=== PATIENT | female | born 1990 | race Caucasian/White ===

== ENCOUNTER 2018-07-22 10:04 | Observation (INO) | payer MEDICARE, OTHER ==
[2018-07-22 10:09] VITALS: BMI 23.6
[2018-07-22] MEDS ORDERED: Sodium Chloride 0.9% 1,000 ML IV STA (10:39)
[2018-07-22] MEDS ORDERED: Insulin Regular 100 units/ml IVP ONE ×2 (10:39→13:01)
--- NOTE | 2018-07-22 10:54 | ED PDOC ---
Hyperglycemia/Hypoglycemia Time Seen by Provider: 07/22/18 10:24 Chief Complaint (Nursing): High Blood Sugar : The patient does not have any of the infectious symptoms listed except for those marked. Additional Complaint(s): 28 y/o F with a PMHx of fibrous dysplasia, hypothyroidism and IDDM presented to ED due to elevated glucose serum level. Pt reports changing infusion set and tubing last night. Pt woke up early today with nausea, ~3 episodes of vomiting and palpitations. Pt reports measurements of 500s blood sugar since last night. Pt denies nasal congestion, cough, chest pain, SOB, abdominal pain, diarrhea or rash. PMD: in [place] [employer] Tax Manager: Dr Llamas Allergies: TMP/SMZ Meds: Insulin pump, Levothyroxine. PMHx: Fibrous dysplasi, hypothyroidism and IDDM PSHx: Various due to Hx of fibrous dyspla FHx: NC SHx: Ocasional alcohol, last alcohol intake 2 weeks ago. No tobacco. No recreational drugs. Past Medical History Vital Signs: Last Vital Signs Temp 98.7 F 07/22/18 10:09 Pulse 128 H 07/22/18 10:09 Resp 20 07/22/18 10:09 BP 145/91 H 07/22/18 10:09 Pulse Ox 100 07/22/18 10:09 Primary Care Provider: Non [facility] Provider, - Medical History PMH: Diabetes, Hypothyroidism - Family History Family History: States: Unknown Family Hx - Immunization History Hx Influenza Vaccination: No Hx Pneumococcal Vaccination: No - Home Medications Home Medications: Ambulatory Orders Medication Instructions Recorded Ferrous Sulfate [Feosol] 325 mg PO DAILY 04/18/17 Insulin Pump Controller [Snap 1 each MC Q1 04/18/17 Insulin Pump Controller] Levothyroxine [Synthroid] 150 mcg PO DAILY 04/18/17 Benzonatate [Tessalon Perles] 200 mg PO TID #14 sgl 05/31/18 Cetirizine HCl [Zyrtec] 10 mg PO DAILY #14 capsule 05/31/18 Ibuprofen [Motrin] 600 mg PO Q6H #20 tab 05/31/18 Tobramycin 0.3% [Tobrex 0.3% Ophth 1 drop OS BID #1 bottle 05/31/18 Soln] predniSONE [Prednisone] 40 mg PO DAILY #8 tab 05/31/18 - Allergies Allergies/Adverse Reactions: Allergies Allergy/AdvReac Type Severity Reaction Status Date / Time sulfamethoxazole Allergy hives Verified 07/22/18 10:23 [From Bactrim] trimethoprim [From Bactrim] Allergy hives Verified 07/22/18 10:23 Review of Systems Constitutional: Negative for: Fever, Chills ENT: Negative for: Ear Pain, Ear Discharge Cardiovascular: Positive for: Palpitations. Negative for: Chest Pain Respiratory: Negative for: Cough, Shortness of Breath Gastrointestinal: Positive for: Nausea, Vomiting. Negative for: Abdominal Pain, Diarrhea, Hematochezia, Hematemesis Genitourinary Female: Negative for: Dysuria Musculoskeletal: Negative for: Neck Pain Skin: Negative for: Rash Physical Exam - Physical Exam Appears: Positive for: No Acute Distress Head Exam: Positive for: ATRAUMATIC Skin: Positive for: Normal Color, Warm Eye Exam: Positive for: EOMI, PERRL ENT: Negative for: Nasal Congestion, Pharyngeal Erythema, Tonsillar Exudate Neck: Positive for: Normal, Painless ROM, Supple Cardiovascular/Chest: Positive for: Regular Rate, Rhythm Respiratory: Positive for: Normal Breath Sounds Gastrointestinal/Abdominal: Positive for: Soft, Tenderness (mild, epigastric). Negative for: Organomegaly, Mass, Rebound Extremity: Negative for: Tenderness Neurological/Psych: Positive for: Awake, Alert - Laboratory Results Result Diagrams: 07/22/18 11:10 07/22/18 11:10 - ECG O2 Sat by Pulse Oximetry: 100 Medical Decision Making Medical Decision Makin:55 --POC Gluose: 460 --Needs to rule out DKA. --IV NSS bolus and IV Regular insulin 6 units ordered. --CBC, CMP, Mg, PO4, vBG were ordered --EKG ordered 12:55 --POC Glucose 316 --pH 7.3, HCO3 17, anion gap 17-high. --Sodium WNL, U/A unreamrkable with neg nitrites and neg Leuko est. --CXR ordered. --Endocrinology consult ordered. Dr Llamas made aware. Will send insulin pump educator later today. --IV NS-with [id number] ordered --IV Regular Insulin 4 units. --Pt stable, will admitted under Dr Wallis's service. Resident Dr Inge Choe made aware. Disposition - Clinical Impression Clinical Impression: Hyperglycemia, DKA (diabetic ketoacidoses) - Patient ED Disposition Is Patient to be Admitted: Yes - Disposition Disposition Time: 13:17 Condition: FAIR Forms: [employer] ([employer]) - Pt Status Changed To: Hospital Disposition Of: Inpatient - Admit Certification Admit to Inpatient:: After my assessment, the patient will require hospitalization for at least two midnights. This is because of the severity of symptoms shown, intensity of services needed, and/or the medical risk in this patient being treated as an outpatient. - POA Present On Arrival: None
[2018-07-22 11:18] LABS: BASO # 0.1 K/uL (0.0-0.2); BASO % 0.4 % (0.0-2.0); EOS % 0.2 % (0.0-4.0); HEMOGLOBIN 11.9 g/dL (12.0-16.0); LYMPH # 1.8 K/uL (1.0-4.3); LYMPH % 12.6 % (20.0-40.0); MEAN CORPUSCULAR HEMOGLOBIN 28.6 pg (27.0-31.0); MEAN CORPUSCULAR HGB CONC 32.5 g/dL (33.0-37.0); MEAN PLATELET VOLUME 8.3 fl (7.2-11.7); MONO # 0.7 K/uL (0.0-0.8); MONO % 5.1 % (0.0-10.0); NEUT # 11.9 K/uL (1.8-7.0); NEUT % 81.7 % (50.0-75.0); RBC 4.17 Mil/uL (3.80-5.20); RED CELL DISTRIBUTION WIDTH 14.4 % (11.5-14.5); WHITE BLOOD COUNT 14.6 K/uL (4.8-10.8)
[2018-07-22] MEDS ORDERED: Insulin Regular 100 units/ml ONE ×2 (11:18→13:14)
[2018-07-22 11:23] LABS: VENOUS BLOOD GAS BASE EXCESS -8.4 mmol/L (0.0-2.0); VENOUS BLOOD GAS PCO2 35 mmHg (40-60); VENOUS BLOOD GAS PO2 40 mm/Hg (30-55)
[2018-07-22 12:12] LABS: ALB/GLOB RATIO 1.3 (1.0-2.1); ALBUMIN 4.2 g/dL (3.5-5.0); ALT/SGPT 20 U/L (9-52); AST/SGOT 26 U/L (14-36); BLOOD UREA NITROGEN 15 mg/dl (7-17); CALCIUM 9.4 mg/dL (8.4-10.2); GFR NON-AFRICAN AMERICAN > 60
[2018-07-22 12:52] LABS: SQUAMOUS EPITHIAL 14 /hpf (0-5); URINE AMORPHOUS SEDIMENT RARE /ul (<OCC); URINE BACTERIA FEW (<OCC); URINE BILIRUBIN NEGATIVE (NEGATIVE); URINE BLOOD LARGE (NEGATIVE); URINE CLARITY CLOUDY (Clear); URINE COLOR RED (YELLOW); URINE GLUCOSE (UA) >=500 mg/dL (NEGATIVE); URINE LEUKOCYTE ESTERASE NEG Leu/uL (Negative); URINE PROTEIN 30 mg/dL (NEGATIVE); URINE UROBILINOGEN 0.2-1.0 mg/dL (0.2-1.0)
[2018-07-22] MEDS ORDERED: Potassium Chl 20 mEq in NS 1,000 ML IV SCH ×3 (13:00→14:45)
[2018-07-22] MEDS ORDERED: Sodium Chloride 0.9% 1,000 ML IV SCH (13:00)
--- NOTE | 2018-07-22 13:51 | RAD ---
Date of service: 07/22/2018 HISTORY: SOB COMPARISON: No prior. FINDINGS: LUNGS: The lungs are well inflated and clear. PLEURA: No pleural effusions or pneumothorax. CARDIOVASCULAR: The heart is normal in size. No aortic atherosclerotic calcifications present. OSSEOUS STRUCTURES: Within normal limits for the patient's age. VISUALIZED UPPER ABDOMEN: Normal. OTHER FINDINGS: None. IMPRESSION: No active pulmonary disease.
[2018-07-22] MEDS ORDERED: Dextrose 50% SYRINGE Inj (50 ml) IV PRN (14:15)
[2018-07-22] MEDS ORDERED: Glucagon Recombinant 1 mg Inj IM PRN (14:15)
--- NOTE | 2018-07-22 14:28 | CP.PCM.HP ---
History of Present Illness - History of Present Illness History of Present Illness: This is 28 y/o F with PMH of IDDM-I/insulin pump since age of 7y/o, Hypothyroid and fibrous dysplasia admitted to [facility] for evaluation and treatment of Hyperglycemia/DKA. Patient reports she woke up this morning with nausea and palpitations, had 3 episodes of NBNB vomiting. States she might have insulin pump malfunctioning since last night after she changed tubing and has been getting BS 500+ since last night. Denies any other symptoms. Denies ever having DKA in life. PMD: in [place] [employer] Faculty Member: Dr Llamas Allergies: TMP/SMZ Meds: Insulin pump, Levothyroxine. PMHx: Fibrous dysplasi, hypothyroidism and IDDM PSHx: Various due to Hx of fibrous dyspla FHx: NC SHx: Ocasional alcohol, last alcohol intake 2 weeks ago. No tobacco. No recreational drugs. Present on Admission - Present on Admission Any Indicators Present on Admission: No Review of Systems - Constitutional Constitutional: absent: Excessive Sweating, Fatigue, Fever, Headache, Lethargy, Snoring, Weight Loss, Weakness - EENT Eyes: absent: Blurred Vision Ears: absent: Ear Discharge, Dizziness Nose/Mouth/Throat: absent: Tongue Swelling, Facial Pain, Neck Pain - Breasts Breasts: absent: Skin Changes - Cardiovascular Cardiovascular: Palpitations. absent: Chest Pain, Syncope - Respiratory Respiratory: absent: Cough, Dyspnea, Hemoptysis - Gastrointestinal Gastrointestinal: Nausea, Vomiting. absent: Abdominal Pain, Cramping, Diarrhea - Genitourinary Genitourinary: absent: Change in Urinary Stream, Dysuria - Integumentary Integumentary: absent: Rash - Neurological Neurological: absent: Dizziness, Sensory Deficit, Syncope, Tingling, Tremor, Vertigo, Weakness - Psychiatric Psychiatric: absent: Anxiety, Depression - Hematologic/Lymphatic Hematologic: absent: Easy Bleeding Past Patient History - Infectious Disease Hx of Infectious Diseases: None - Past Social History Smoking Status: Never Smoked - ENDOCRINE/METABOLIC Hx Hypothyroidism: Yes - HEMATOLOGICAL/ONCOLOGICAL Hx Cancer: Yes (left breast) - MUSCULOSKELETAL/RHEUMATOLOGICAL Other/Comment: Hx of fibrous dysplasia. - PSYCHIATRIC Hx Substance Use: No - SURGICAL HISTORY Hx Surgeries: Yes Other/Comment: Plastic. Left breast mastectomy with reconstruction. - ANESTHESIA Hx Anesthesia: Yes Hx Anesthesia Reactions: No Hx Malignant Hyperthermia: No Meds Allergies/Adverse Reactions: Allergies Allergy/AdvReac Type Severity Reaction Status Date / Time sulfamethoxazole Allergy hives Verified 07/22/18 10:23 [From Bactrim] trimethoprim [From Bactrim] Allergy hives Verified 07/22/18 10:23 Physical Exam - Constitutional Appears: No Acute Distress (fibrous dysplastic changes on face) - Head Exam Head Exam: NORMAL INSPECTION - Eye Exam Eye Exam: EOMI, Normal appearance, PERRL Pupil Exam: NORMAL ACCOMODATION, PERRL - ENT Exam ENT Exam: Mucous Membranes Moist - Neck Exam Neck exam: Positive for: Normal Inspection - Respiratory Exam Respiratory Exam: Clear to Auscultation Bilateral, NORMAL BREATHING PATTERN - Cardiovascular Exam Cardiovascular Exam: Tachycardia, REGULAR RHYTHM, +S1, +S2 - GI/Abdominal Exam GI & Abdominal Exam: Normal Bowel Sounds, Soft. absent: Guarding, Rigid - Extremities Exam Extremities exam: Positive for: normal inspection. Negative for: tenderness - Back Exam Back exam: NORMAL INSPECTION. absent: CVA tenderness (L), CVA tenderness (R) - Neurological Exam Neurological exam: Alert, CN II-XII Intact, Oriented x3, Reflexes Normal - Psychiatric Exam Psychiatric exam: Normal Affect - Skin Skin Exam: Dry, Intact, Normal Color, Warm Results - Vital Signs Recent Vital Signs: Last Vital Signs Temp 98.7 F 07/22/18 10:09 Pulse 128 H 07/22/18 10:09 Resp 20 07/22/18 10:09 BP 145/91 H 07/22/18 10:09 Pulse Ox 100 07/22/18 13:32 - Labs Result Diagrams: 07/22/18 11:10 07/22/18 11:10 Labs: Laboratory Results - last 24 hr 07/22/18 07/22/18 07/22/18 10:27 11:10 11:10 WBC 14.6 H D RBC 4.17 Hgb 11.9 L Hct 36.7 MCV 88.0 D MCH 28.6 MCHC 32.5 L RDW 14.4 Plt Count 340 MPV 8.3 Neut % (Auto) 81.7 H Lymph % (Auto) 12.6 L Hitchcock % (Auto) 5.1 Eos % (Auto) 0.2 Baso % (Auto) 0.4 Neut # (Auto) 11.9 H Lymph # (Auto) 1.8 Hitchcock # (Auto) 0.7 Eos # (Auto) 0.0 Baso # (Auto) 0.1 pO2 ABG Carboxyhemoglobin POC ABG HHb (Measured) ABG Methemoglobin VBG pH VBG pCO2 VBG HCO3 VBG O2 Sat (Calc) VBG Base Excess VBG Hgb O2 Saturation Hemoglobin Sodium 133 Potassium 4.9 Chloride 99 Carbon Dioxide 17 L Anion Gap 22 H BUN 15 Creatinine 0.5 L Est GFR ( Amer) > 60 Est GFR (Non-Af Amer) > 60 POC Glucose (mg/dL) 463 H* Random Glucose 446 H* D Calcium 9.4 Phosphorus 3.4 Magnesium 1.7 Total Bilirubin 0.8 AST 26 ALT 20 Alkaline Phosphatase 666 H Total Protein 7.4 Albumin 4.2 Globulin 3.2 Albumin/Globulin Ratio 1.3 TSH 3rd Generation 2.41 Urine Color Urine Clarity Urine pH Ur Specific [place] Urine Protein Urine Glucose (UA) Urine Ketones Urine Blood Urine Nitrate Urine Bilirubin Urine Urobilinogen Ur Leukocyte Esterase Urine RBC (Auto) Urine Microscopic WBC Ur Squamous Epith Cells Amorphous Sediment Urine Bacteria 07/22/18 07/22/18 07/22/18 11:19 12:10 13:10 WBC RBC Hgb Hct MCV MCH MCHC RDW Plt Count MPV Neut % (Auto) Lymph % (Auto) Hitchcock % (Auto) Eos % (Auto) Baso % (Auto) Neut # (Auto) Lymph # (Auto) Hitchcock # (Auto) Eos # (Auto) Baso # (Auto) pO2 40 ABG Carboxyhemoglobin 2.1 H POC ABG HHb (Measured) 21.0 H ABG Methemoglobin 3.4 H VBG pH 7.30 L VBG pCO2 35 L VBG HCO3 17.8 VBG O2 Sat (Calc) 77.8 H VBG Base Excess -8.4 L VBG Hgb O2 Saturation 73.5 L Hemoglobin 11.8 Sodium Potassium Chloride Carbon Dioxide Anion Gap BUN Creatinine Est GFR ( Amer) Est GFR (Non-Af Amer) POC Glucose (mg/dL) 312 H Random Glucose Calcium Phosphorus Magnesium Total Bilirubin AST ALT Alkaline Phosphatase Total Protein Albumin Globulin Albumin/Globulin Ratio TSH 3rd Generation Urine Color Red Urine Clarity Cloudy Urine pH 6.0 Ur Specific [place] 1.027 Urine Protein 30 Urine Glucose (UA) >=500 Urine Ketones 80 Urine Blood Large Urine Nitrate Negative Urine Bilirubin Negative Urine Urobilinogen 0.2-1.0 Ur Leukocyte Esterase Neg Urine RBC (Auto) 500 H Urine Microscopic WBC 4 Ur Squamous Epith Cells 14 H Amorphous Sediment Rare H Urine Bacteria Few H Assessment & Plan - Assessment and Plan (Free Text) Assessment: A/P: 28 y/o F with PMH of IDDM-I/insulin pump since age of 7y/o, Hypothyroid and fibrous dysplasia admitted to [facility] for evaluation and treatment of Hyperglycemia/DKA. PH 7.30, K 4.9, BS recent one 270, UA + ketones. Hyperglycemia/DKA - VS, Labs and EKG/CXR reviewed, EKG: Sinus tachy 101, CXR: negative for any acute changes - Consult Endocrine Dr. Llamas, recommendations appreciated, f/u further recs - C/w Hydration/IVF, Monitor Potassium and electrolytes - Lispro/Low dose sliding scale insulin, Hypoglycemic protocol, AccuChecks Q2H - C/w Levothyroxine 150mcg and rest plan as ordered - DVT ppx as ordered Case discussed with Dr. Wallis, agrees with plan
[2018-07-22] MEDS ORDERED: Insulin Lispro (humaLOG) 100 Units/ml Inj SC SCH ×2 (16:00)
--- NOTE | 2018-07-22 16:02 | CARD ---
APPROVED REPORT Date of service: 07/22/2018 EKG Measurement Heart [id number] <Conclusion> Sinus tachycardia Otherwise normal ECG
[2018-07-22] MEDS: Insulin Lispro (humaLOG) 100 Units/ml Inj SC SCH ×4 (17:52→22:00)
[2018-07-22] MEDS ORDERED: Patient's Own Med (Dorzolamide 2%/Timolol 0.5% [Cosopt 2%-0.5% Opht] 1 DROP) LEFTEYE SCH (21:00)
[2018-07-22] MEDS: Dorzolamide 2% Ophth Soln OS SCH (21:37)
[2018-07-22] MEDS ORDERED: Insulin Detemir 100 Units/ml Inj SC SCH (22:00)
--- NOTE | 2018-07-23 02:15 | CON ---
DATE: 07/22/2018 ENDOCRINOLOGY CONSULTATION HISTORY OF PRESENT ILLNESS: This is a 28-year-old female with known history of type 1 insulin dependent diabetes, currently on a [employer] insulin pump, presenting here with marked hyperglycemic accelerations as noted overnight and glucose values over 500 mg/dL at home, which she ascribes to a possible malfunction or insulin dripping and/or insulin pump as noted thereof. PAST MEDICAL HISTORY: As mentioned above, history of type 1 insulin-dependent diabetes diagnosed at age 7 and insulin dependent till the present time, has been using Medtronic insulin pump over the last five years or so with near optimal metabolic control of her diabetic condition as noted. 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 FAMILY HISTORY: Positive for hypertension and diabetes. SOCIAL HISTORY: The patient has supportive family. No known substance use. Social use of alcohol. REVIEW OF SYSTEMS: As mentioned above, admitted to the generalized body weakness with easy fatigability and tiredness and suboptimal energy level. Also admitted to recent bifrontal headaches with visual blurring and progressively worsening dizziness and lightheadedness especially on the day of admission. No chest pain but admits to progressive shortness of breath initially on exertion and then at rest. Her oral intake has been variable with nausea, dyspepsia, and episodic vomiting episodes. Also admits to marked polyuria, nocturia, and polydipsia. PHYSICAL EXAMINATION: GENERAL: Average-built female in no apparent distress. VITAL SIGNS: Blood pressure 140/80, pulse of 100 beats per minute and regular, temperature 98, respirations 20. Height is 5 feet and 2 inches. Weight is 129 pounds. HEENT: Head is normocephalic. Eyes are anicteric with pink conjunctivae. Funduscopy is not possible at this time. Ears, nose, and throat otherwise normal. NECK: Supple. Thyroid gland is normal in size. No carotid bruits. No cervical lymphadenopathy. CARDIOPULMONARY: Some adynamic precordium. S1 and S2 are rapid and regular. LUNGS: Clear to auscultation. ABDOMEN: Flat, soft with positive bowel sounds. EXTREMITIES: No peripheral edema. Pulses are +2 bilaterally. LABORATORY DATA: Chemistries showed a BUN of 15, sodium 133, potassium 4.9, chloride 99, CO2 of 17, glucose is 446, and creatinine 0.5. Her glucose levels have ranged from 270 to 312 and 463 mg/dL. Her alkaline phosphatase is 666 with normal liver transaminases. ASSESSMENT: This is a 28-year-old female with uncontrolled and decompensated type 1 insulin-dependent diabetes, presenting here with possible malfunction of her insulin pump and dripping with supervening marked hyperglycemic accelerations overnight with concomitant biochemical evidence of dehydration and spurious hyponatremia. She also has significant autoimmune thyroiditis with Aaron's thyroiditis and hypothyroidism, clinically and biochemically euthyroid, on levothyroxine replacement therapy as given. 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 PLAN OF MANAGEMENT: We will continue the intensive insulin therapy with glucose monitoring done every 2 hours as ordered and Humalog coverage scale as given and basal insulin with Levemir given as 20 units subcu at bedtime daily. We will start tonight. We will continue the vigorous IV hydration with normal saline as mentioned to the ER physician earlier today to fully replenish her loss of fluids and electrolytes and increased osmotic diuresis thereof. We will call the [employer] comp specialist, Ms. Liana Torres, right away regarding the need of the insulin pump to be checked out for possible malfunction and supply in emergency in the patient as indicated. We will follow and advise accordingly. We will obtain a hemoglobin A1c to confirm her prior glycemic control, and baseline thyroid function studies will be obtained. We will adjust her levothyroxine dose accordingly. Alexus Llamas MD
[2018-07-23] MEDS ORDERED: Levothyroxine 150 MCG TAB PO SCH (06:30)
[2018-07-23 08:48] VITALS: RESP 20
[2018-07-23] MEDS: Insulin Lispro (humaLOG) 100 Units/ml Inj SC SCH ×4 (08:53→11:41)
[2018-07-23] MEDS: Dorzolamide 2% Ophth Soln OS SCH (08:54)
[2018-07-23] MEDS ORDERED: Enoxaparin 40 mg Syringe SC SCH (09:00)
--- NOTE | 2018-07-23 10:20 | CP.PCM.PN ---
Subjective - Date & Time of Evaluation Date of Evaluation: 07/23/18 Time of Evaluation: 06:00 - Subjective Subjective: Patient seen and examined this morning with Dr. Wallis. Patient denies any acute event overnight, denies any n/v/f/dizziness, chest pain or abdominal pain Blood sugar improved, c/w endo recommendations. Objective - Vital Signs/Intake and Output Vital Signs (last 24 hours): Temp Pulse Resp BP Pulse Ox 98.1 F 101 H 20 100/62 99 07/23/18 08:48 07/23/18 08:48 07/23/18 08:48 07/23/18 08:48 07/23/18 08:48 - Medications Medications: Current Medications Acetaminophen (Tylenol 325mg Tab) 650 mg PO Q6 PRN PRN Reason: Pain, moderate (4-7) Last Admin: 07/22/18 18:52 Dose: 650 mg Acetaminophen (Tylenol 325mg Tab) 650 mg PO Q6 PRN PRN Reason: Fever >100.4 F Dextrose (Dextrose 50% Inj) 0 ml IV STAT PRN; Protocol PRN Reason: Hypoglycemia Protocol Dextrose (Glutose 15) 0 gm PO ONCE PRN; Protocol PRN Reason: Hypoglycemia Protocol Last Admin: 07/23/18 06:22 Dose: 61 gm Dorzolamide HCl (Trusopt) 1 drop OS Q12H [facility] Last Admin: 07/23/18 08:54 Dose: 1 drop Enoxaparin Sodium (Lovenox) 40 mg SC DAILY [facility]; Protocol Last Admin: 07/23/18 08:52 Dose: 40 mg Glucagon (Glucagen Diagnostic Kit) 0 mg IM STAT PRN; Protocol PRN Reason: Hypoglycemia Protocol Insulin Detemir (Levemir) 24 units SC HS [facility] Last Admin: 07/22/18 21:41 Dose: 24 units Insulin Human Lispro (Humalog) 8 units SC AC [facility] Last Admin: 07/23/18 08:53 Dose: 8 unit Insulin Human Lispro (Humalog) 0 units SC ACHS [facility] Last Admin: 07/23/18 08:53 Dose: Not Given Levothyroxine Sodium (Synthroid) 150 mcg PO DAILY@0630 [facility] Last Admin: 07/23/18 06:13 Dose: 150 mcg Ondansetron HCl (Zofran Inj) 4 mg IVP Q6 PRN PRN Reason: Nausea/Vomiting Last Admin: 07/22/18 18:16 Dose: 4 mg Timolol Maleate (Timoptic 0.5% Ophth Soln) 1 drop OS Q12H [facility] Last Admin: 07/23/18 08:54 Dose: 1 drop Tramadol HCl (Ultram) 50 mg PO Q8 PRN PRN Reason: Pain, severe (8-10) - Labs Labs: 07/22/18 11:10 07/22/18 11:10 - Constitutional Appears: No Acute Distress (fibrous dysplastic changes on face) - Head Exam Head Exam: NORMAL INSPECTION - Eye Exam Eye Exam: Normal appearance - ENT Exam ENT Exam: Mucous Membranes Moist - Neck Exam Neck Exam: Normal Inspection - Respiratory Exam Respiratory Exam: Clear to Ausculation Bilateral, NORMAL BREATHING PATTERN - Cardiovascular Exam Cardiovascular Exam: Tachycardia, REGULAR RHYTHM, +S1, +S2 - GI/Abdominal Exam GI & Abdominal Exam: Soft, Normal Bowel Sounds. absent: Tenderness - Extremities Exam Extremities Exam: Normal Inspection - Back Exam Back Exam: NORMAL INSPECTION - Neurological Exam Neurological Exam: Alert, Awake, CN II-XII Intact, Oriented x3 - Psychiatric Exam Psychiatric exam: Normal Affect - Skin Skin Exam: Normal Color Assessment and Plan - Assessment and Plan (Free Text) Assessment: 28 y/o F with PMH of IDDM-I/insulin pump since age of 7y/o, Hypothyroid and fibrous dysplasia admitted to [facility] for evaluation and treatment of Hyperglycemia/DKA. PH 7.30, K 4.9, BS recent one 270, UA + ketones. Hyperglycemia/DKA - Consult Endocrine Dr. Llamas, recommendations appreciated, f/u further recs - C/w Hydration/IVF, Monitor Potassium and electrolytes - C/w Levemir 24U HS, Lispro/Low dose sliding scale insulin, Hypoglycemic protocol, AccuChecks Q2H - C/w Levothyroxine 150mcg and rest plan as ordered - Insulin pump check - DVT ppx as ordered - F/u blood work as ordered Case discussed with Dr. Wallis, agrees with plan
[2018-07-23 12:45] VITALS: BP 109/68; PULSE 90; TEMP 97.3; O2SAT 96
[2018-07-23 13:04] LABS: ALB/GLOB RATIO 1.2 (1.0-2.1); ALBUMIN 3.5 g/dL (3.5-5.0); ALT/SGPT 21 U/L (9-52); AST/SGOT 16 U/L (14-36); BLOOD UREA NITROGEN 10 mg/dl (7-17); CALCIUM 7.9 mg/dL (8.4-10.2); GFR NON-AFRICAN AMERICAN > 60
--- NOTE | 2018-07-23 14:35 | CP.PCM.DIS ---
Provider - Provider Date of Admission: 07/22/18 13:15 Attending physician: Clemente Wallis MD Primary care physician: PMD: ellie Garcia Certified Diabetes Educator: Dr Llamas Consults: 07/22/18 13:15 Endocrinology Consult Stat Comment: Consulting Provider: Alexus Llamas Consulting Physician: Alexus Llamas Reason for Consult: DKA, ?insulin pump misfunction Time Spent in preparation of Discharge (in minutes): 40 Diagnosis - Discharge Diagnosis (1) Hyperglycemia Status: Acute (2) DKA (diabetic ketoacidoses) Status: Acute Hospital Course - Lab Results Lab Results: Most Recent Lab Values WBC 14.6 K/uL (4.8-10.8) H D 07/22/18 11:10 RBC 4.17 Mil/uL (3.80-5.20) 07/22/18 11:10 Hgb 11.9 g/dL (12.0-16.0) L 07/22/18 11:10 Hct 36.7 % (34.0-47.0) 07/22/18 11:10 MCV 88.0 fl (81.0-99.0) D 07/22/18 11:10 MCH 28.6 pg (27.0-31.0) 07/22/18 11:10 MCHC 32.5 g/dL (33.0-37.0) L 07/22/18 11:10 RDW 14.4 % (11.5-14.5) 07/22/18 11:10 Plt Count 340 K/uL (130-400) 07/22/18 11:10 MPV 8.3 fl (7.2-11.7) 07/22/18 11:10 Neut % (Auto) 81.7 % (50.0-75.0) H 07/22/18 11:10 Lymph % (Auto) 12.6 % (20.0-40.0) L 07/22/18 11:10 [place] % (Auto) 5.1 % (0.0-10.0) 07/22/18 11:10 Eos % (Auto) 0.2 % (0.0-4.0) 07/22/18 11:10 Baso % (Auto) 0.4 % (0.0-2.0) 07/22/18 11:10 Neut # (Auto) 11.9 K/uL (1.8-7.0) H 07/22/18 11:10 Lymph # (Auto) 1.8 K/uL (1.0-4.3) 07/22/18 11:10 [place] # (Auto) 0.7 K/uL (0.0-0.8) 07/22/18 11:10 Eos # (Auto) 0.0 K/uL (0.0-0.7) 07/22/18 11:10 Baso # (Auto) 0.1 K/uL (0.0-0.2) 07/22/18 11:10 pO2 40 mm/Hg (30-55) 07/22/18 11:19 ABG Carboxyhemoglobin 2.1 % (0.5-1.5) H 07/22/18 11:19 POC ABG HHb (Measured) 21.0 % (0.0-5.0) H 07/22/18 11:19 ABG Methemoglobin 3.4 % (0.0-3.0) H 07/22/18 11:19 VBG pH 7.30 (7.32-7.43) L 07/22/18 11:19 VBG pCO2 35 mmHg (40-60) L 07/22/18 11:19 VBG HCO3 17.8 mmol/L 07/22/18 11:19 VBG O2 Sat (Calc) 77.8 % (40-65) H 07/22/18 11:19 VBG Base Excess -8.4 mmol/L (0.0-2.0) L 07/22/18 11:19 VBG Hgb O2 Saturation 73.5 % (95.0-98.0) L 07/22/18 11:19 Hemoglobin 11.8 g/dL (11.7-17.4) 07/22/18 11:19 Sodium 137 mmol/l (132-148) 07/23/18 12:40 Potassium 3.4 MMOL/L (3.6-5.0) L 07/23/18 12:40 Chloride 105 mmol/L (98-107) 07/23/18 12:40 Carbon Dioxide 22 mmol/L (22-30) 07/23/18 12:40 Anion Gap 13 (10-20) 07/23/18 12:40 BUN 10 mg/dl (7-17) 07/23/18 12:40 Creatinine 0.5 mg/dl (0.7-1.2) L 07/23/18 12:40 Est GFR ( Amer) > 60 07/23/18 12:40 Est GFR (Non-Af Amer) > 60 07/23/18 12:40 POC Glucose (mg/dL) 319 mg/dL (65-110) H 07/23/18 11:08 Random Glucose 123 mg/dL (65-105) H 07/23/18 12:40 Calcium 7.9 mg/dL (8.4-10.2) L 07/23/18 12:40 Phosphorus 2.7 mg/dl (2.5-4.5) 07/23/18 12:40 Magnesium 1.7 MG/DL (1.6-2.3) 07/23/18 12:40 Total Bilirubin 0.4 mg/dl (0.2-1.3) 07/23/18 12:40 AST 16 U/L (14-36) 07/23/18 12:40 ALT 21 U/L (9-52) 07/23/18 12:40 Alkaline Phosphatase 455 U/L (38-126) H D 07/23/18 12:40 Total Protein 6.5 G/DL (6.3-8.2) 07/23/18 12:40 Albumin 3.5 g/dL (3.5-5.0) 07/23/18 12:40 Globulin 3.0 gm/dL (2.2-3.9) 07/23/18 12:40 Albumin/Globulin Ratio 1.2 (1.0-2.1) 07/23/18 12:40 Thyroxine (T4) 8.07 ug/dl (5.5-11.0) 07/23/18 12:40 TSH 3rd Generation 3.28 mIU/ML (0.46-4.68) 07/23/18 12:40 Urine Color Red (YELLOW) 07/22/18 12:10 Urine Clarity Cloudy (Clear) 07/22/18 12:10 Urine pH 6.0 (5.0-8.0) 07/22/18 12:10 Ur Specific [place] 1.027 (1.003-1.030) 07/22/18 12:10 Urine Protein 30 mg/dL (NEGATIVE) 07/22/18 12:10 Urine Glucose (UA) >=500 mg/dL (NEGATIVE) 07/22/18 12:10 Urine Ketones 80 mg/dL (NEGATIVE) 07/22/18 12:10 Urine Blood Large (NEGATIVE) 07/22/18 12:10 Urine Nitrate Negative (NEGATIVE) 07/22/18 12:10 Urine Bilirubin Negative (NEGATIVE) 07/22/18 12:10 Urine Urobilinogen 0.2-1.0 mg/dL (0.2-1.0) 07/22/18 12:10 Ur Leukocyte Esterase Neg [place]/uL (Negative) 07/22/18 12:10 Urine RBC (Auto) 500 /hpf (0-3) H 07/22/18 12:10 Urine Microscopic WBC 4 /hpf (0-5) 07/22/18 12:10 Ur Squamous Epith Cells 14 /hpf (0-5) H 07/22/18 12:10 Amorphous Sediment Rare /ul (<OCC) H 07/22/18 12:10 Urine Bacteria Few (<OCC) H 07/22/18 12:10 - Hospital Course Hospital Course: 28 y/o F with PMH of IDDM-I/insulin pump since age of 7y/o, Hypothyroid and fibrous dysplasia admitted to [facility] for evaluation and treatment of Hyperglycemia/DKA and insulin pump malfunction . PH 7.30, K 4.9, BS recent one 270, UA + ketones. After admission, Endo Dr. Llamas consulted, patient started on IVF and Insulin, today's labs reviewed, BS is well controlled, patient is AAOx3 and tolerating PO intake. Patient is cleared by Dr. Llamas, to d/c and out patient follow up. Patient understands and agrees with plan. No new Rx, c/w home insulin pump as instructed Discharge Exam - Head Exam Head Exam: NORMAL INSPECTION (fibrous dysplastic changes on face) - Eye Exam Eye Exam: Normal appearance - ENT Exam ENT Exam: Mucous Membranes Moist - Neck Exam Neck exam: Normal Inspection - Respiratory Exam Respiratory Exam: Clear to PA & Lateral, NORMAL BREATHING PATTERN, UNREMARKABLE - Cardiovascular Exam Cardiovascular Exam: REGULAR RHYTHM, +S1, +S2 - GI/Abdominal Exam GI & Abdominal Exam: Normal Bowel Sounds, Soft. absent: Tenderness - Extremities Exam Extremities exam: normal inspection - Back Exam Back exam: absent: CVA tenderness (L), CVA tenderness (R) - Neurological Exam Neurological exam: Alert, CN II-XII Intact, Oriented x3 - Psychiatric Exam Psychiatric exam: Normal Affect - Skin Skin Exam: Dry, Intact, Normal Color, Warm Discharge Plan - Follow Up Plan Condition: FAIR Disposition: HOME/ ROUTINE Instructions: Diabetic Ketoacidosis, Blood Glucose Test, Diabetes and Diet Additional Instructions: C/w Home insulin pump as instructed by Dr. Llamas F/u Dr. Llamas and PMD in 3-4 days Referrals: Alexus Llamas MD [Medical Doctor] - Anam Monreal MD [Medical Doctor] -
[2018-07-23 16:14] LABS: GAMMA GLUTAMYL TRANSPEPTIDASE 12 U/L (8-78)
[2018-07-23] MEDS ORDERED: Insulin Lispro (humaLOG) 100 Units/ml Inj SC SCH (16:30)
--- NOTE | 2018-07-23 19:28 | PN ---
DATE: 07/23/2018 ENDOCRINOLOGY FOLLOWUP NOTE LOCATION: Room 418. SUBJECTIVE: This is a 28-year-old female with recent uncontrolled type 1 insulin-dependent diabetes with an apparent malfunction of her insulin tubing insertion and developed supervening marked hyperglycemic accelerations and is now being followed closely for metabolic management. Her glucose values are fluctuating, but improved and the glucose levels overnight have ranged from 63-125 and 319 at lunchtime today as noted. LABORATORY DATA: Her chemistry showed a BUN of 10, sodium 137, potassium 3.4, chloride 105, CO2 of 22, glucose 123 and creatinine 0.5. Her hemoglobin A1c is pending at this time. ASSESSMENT: This is a 28-year-old female with uncontrolled and decompensated type 1 insulin-dependent diabetes with an apparent malfunction of her insulin tubing insertion with supervening diabetic ketoacidosis and dehydration with marked hyperglycemic accelerations as noted thereof. PLAN OF MANAGEMENT: We will continue the current basal and bolus insulin drug combination as initiated in the hospital with a higher dosing actually of Humalog to be given as 12 units t.i.d. before meals to start today as ordered. We will continue the basal insulin given as Levemir at 24 units subcutaneous at bedtime daily as given. We will titrate incrementally as indicated to optimize metabolic control. We will also have a very lengthy discussion with the patient at bedside regarding the imperative need for a more delicate and diligent care of her insulin pump especially the insertion of the insulin infusion set which apparently malfunctioned as the patient actually did not insert it subcutaneously as noted. She was given the [employer] emergency number to call for any problems with her insulin supplies and malfunction of her insulin pump. Would recommend the patient be discharged today, as she has improved clinically and metabolically as noted thereof. She apparently said that she ate a lot of pancakes for breakfast with no carb counting and that is why she developed hyperglycemic accelerations at lunchtime today as noted. She has been instructed to restart right away her insulin pump as soon as she gets home today from the hospital. Alexus Llamas MD
== END 2018-07-23 15:20 | disposition home or self-care (01) ==
LOC: H.ER 10:04 → H.ERHOLD 13:15 → H.TEL 17:15
PROVIDERS: ADMIT Internal Medicine; ATTEND Internal Medicine
DX: E10.10 Type 1 diabetes mellitus with ketoacidosis without coma (principal); E86.0 Dehydration; E87.1 Hypo-osmolality and hyponatremia; I10 Essential (primary) hypertension; Z79.4 Long term (current) use of insulin; Z90.12 Acquired absence of left breast and nipple; E10.65 Type 1 diabetes mellitus with hyperglycemia; Q89.9 Congenital malformation, unspecified; E06.3 Autoimmune thyroiditis; T85.694A Other mechanical complication of insulin pump, initial encounter; Y74.2 Prosthetic and other implants, materials and accessory general hospital and personal-use devices associated with adverse incidents
CPT/HCPCS: 36415; 71045; 80053; 81003; 81025; 82803; 82948; 82977; 83036; 83735; 84100; 84436; 84443; 85025; 93005; 96360; 96374; 99285; G0378; J1650; J2405; J7030